=== PATIENT | male | born 1940 | race Caucasian/White ===

== ENCOUNTER 2017-02-14 16:33 | Inpatient (IN) | payer MEDICARE ==
[~2017-02-14] VITALS: Ht 170.2 cm; Wt 78.9 kg
[2017-02-14] MEDS ORDERED: PLEASE ENTER HEIGHT AND WEIGHT MC SCH (18:30)
[2017-02-14] MEDS ORDERED: VANCOMYCIN PER PHARMACY MC PRN (18:30)
[2017-02-14] MEDS ORDERED: PLEASE ENTER ALLERGIES MC SCH ×2 (18:30)
[2017-02-14] MEDS ORDERED: D5%-LACTATED RINGERS 1,000 ML IV SCH (19:30)
[2017-02-14] MEDS ORDERED: PHARMACOKINETIC CONSULTATION MC ONE (20:00)
[2017-02-14] MEDS ORDERED: PHARMACOKINETIC MONITORING MC PRN (20:00)
[2017-02-14] MEDS ORDERED: VANCOMYCIN 1,600 MG in SODIUM CHLORIDE 0.9% 250 ML IV ONE (20:00)
[2017-02-14 20:16] VITALS: BP 156/83
[2017-02-14] MEDS: AMPICILLIN/SULBACTAM 3 GM in SODIUM CHLORIDE 0.9% 100 ML IV SCH (20:46)
[2017-02-14] MEDS: VERAPAMIL 120MG TABLET HOMEMEDPO SCH (20:47)
[2017-02-14] MEDS: CARVEDILOL 6.25 MG TABLET HOMEMEDPO SCH (20:47)
[2017-02-14 20:50] LABS: HEMATOCRIT 37.7 % (39.2-51.8); HEMOGLOBIN 12.8 g/dL (13.7-18.0); WHITE BLOOD COUNT 7.3 x10^3/uL (3.4-10)
[2017-02-14] MEDS ORDERED: CARVEDILOL 6.25 MG TABLET PO SCH (21:00)
[2017-02-14] MEDS ORDERED: VERAPAMIL 120MG TABLET PO SCH (21:00)
[2017-02-14 21:03] LABS: ASPARTATE AMINO TRANSFERASE 17 U/L (15-37); BLOOD UREA NITROGEN 19 mg/dL (7-18)
[2017-02-14] MEDS ORDERED: D5%-0.9% NACL 1,000 ML IV SCH (21:30)
[2017-02-15] MEDS: AMPICILLIN/SULBACTAM 3 GM in SODIUM CHLORIDE 0.9% 100 ML IV SCH ×4 (02:11→23:48)
[2017-02-15 03:27] VITALS: BP 108/69
[2017-02-15 05:43] LABS: BLOOD UREA NITROGEN 18 mg/dL (7-18)
[2017-02-15 07:30] VITALS: BP 129/77
[2017-02-15] MEDS: CARVEDILOL 6.25 MG TABLET HOMEMEDPO SCH ×2 (08:01→18:19)
[2017-02-15] MEDS: VERAPAMIL 120MG TABLET HOMEMEDPO SCH ×2 (08:04→18:20)
[2017-02-15] MEDS ORDERED: MIDAZOLAM 1 MG/ML, 2ML ONE (13:26)
[2017-02-15] MEDS ORDERED: FENTANYL PF 100 MCG/2ML ONE (13:27)
[2017-02-15] MEDS ORDERED: PROPOFOL 10 MG/ML, 20ML ONE (13:27)
[2017-02-15] MEDS ORDERED: BACITRACIN 50,000 UNIT ONE (13:34)
[2017-02-15] MEDS ORDERED: BUPIVACAINE/PF 0.25% ONE (13:34)
[2017-02-15] MEDS ORDERED: ONDANSETRON 2MG/ML, 2ML IVPush PRN (14:00)
[2017-02-15] MEDS ORDERED: HYDROmorphone 1 MG/ML, 1ML IV PRN (14:00)
[2017-02-15] MEDS ORDERED: FENTANYL PF 100 MCG/2ML IV PRN (14:00)
[2017-02-15] MEDS ORDERED: PROMETHAZINE 25 MG/ML, 1ML IV PRN (14:00)
[2017-02-15] MEDS ORDERED: hydrALAzine 20 MG/ML, 1ML IV PRN (14:00)
[2017-02-15] MEDS ORDERED: ACETAMINOPHEN 325 MG TABLET PO PRN (14:00)
[2017-02-15] MEDS ORDERED: OXYcodone 5 MG/5 ML ORAL.SOL UDC PO PRN (14:00)
[2017-02-15] MEDS ORDERED: LABETALOL 5MG/ML, 20ML IV PRN (14:00)
[2017-02-15] MEDS ORDERED: MEPERIDINE/PF 25MG/0.5ML IVPush PRN (14:00)
[2017-02-15 15:55] VITALS: BP 154/101
[2017-02-15] MEDS ORDERED: MEPERIDINE/PF 50 MG/ML IM PRN (16:00)
[2017-02-15] MEDS ORDERED: ONDANSETRON 2MG/ML, 2ML IV PRN (16:00)
[2017-02-15 18:45] VITALS: BP 145/83
[2017-02-15] MEDS ORDERED: VANCOMYCIN 1,600 MG in SODIUM CHLORIDE 0.9% 250 ML IV SCH (21:30)
[2017-02-15 23:47] VITALS: BP 111/63
[2017-02-16 03:33] VITALS: BP 119/64
[2017-02-16] MEDS: AMPICILLIN/SULBACTAM 3 GM in SODIUM CHLORIDE 0.9% 100 ML IV SCH ×2 (05:43→12:09)
[2017-02-16] MEDS: CARVEDILOL 6.25 MG TABLET HOMEMEDPO SCH (05:43)
[2017-02-16 05:47] VITALS: BP 128/65
[2017-02-16 06:46] VITALS: BP 102/68
[2017-02-16] MEDS: VERAPAMIL 120MG TABLET HOMEMEDPO SCH (09:08)
[2017-02-16 13:05] VITALS: BP 113/68
[2017-02-16] MEDS ORDERED: CLIN300C8 PO (14:13)
[2017-02-16] MEDS ORDERED: OXYC-306 PO (14:13)
== END 2017-02-16 14:25 | disposition home or self-care (01) | DRG 982 ==
LOC: 4NOR 16:33 → DCLOUNGE 02-16 14:02
PROVIDERS: ADMIT Orthopaedic Surgery; ATTEND Orthopaedic Surgery
PROC: 0LB50ZZ Excision of Right Lower Arm and Wrist Tendon, Open Approach (ICD-10-PCS; principal; 2017-02-16)
DX: S61.511A Laceration without foreign body of right wrist, initial encounter (principal); L03.113 Cellulitis of right upper limb; L02.413 Cutaneous abscess of right upper limb; I10 Essential (primary) hypertension; W26.0XXA Contact with knife, initial encounter; Y93.89 Activity, other specified; Y92.89 Other specified places as the place of occurrence of the external cause; Y99.8 Other external cause status; I25.2 Old myocardial infarction; Z95.5 Presence of coronary angioplasty implant and graft
CPT/HCPCS: 36415; 71010; 80053; 81003; 82565; 84520; 85025; 85610; 85651; 85730; 87070; 87075; 87181; 87205; 88304; 93005; J0295; J2250; J2704; J3010; J3370; J3490; J7050; J7121

== ENCOUNTER 2020-12-18 05:52 | Day surgery (SDC) | payer MEDICARE ==
[~2020-12-18] VITALS: Ht 170.2 cm; Wt 84.1 kg
[~2020-12-18 05:52] MED LIST: ASCO500T9 PO; CEFD300C37 PO; CHOL500045 PO; CLIN300C9 PO; CLOP75TA52 PO; DOXY100T PO; IBUP-1221 PO; OXYC1TAB17 PO; THIA100T67 PO; VERA120T13 PO; ZINC220C7 PO
[2020-12-18] MEDS ORDERED: APIX5TAB PO (06:17)
[2020-12-18] MEDS ORDERED: CHOL10003 PO (06:18)
[2020-12-18] MEDS ORDERED: MOBIC PO (06:19)
[2020-12-18] MEDS ORDERED: PROP10TA16 PO (06:20)
[2020-12-18 06:26] VITALS: BP 147/106
[2020-12-18] MEDS ORDERED: DRON400T6 PO (06:33)
[2020-12-18 06:51] LABS: BASOPHILS % (AUTO) 2 % (0-1); EOSINOPHILS % (AUTO) 4 % (1-7); LYMPHOCYTES % (AUTO) 43 % (22-44); MEAN PLATELET VOLUME 10.6 fL (7.4-10.4); MONOCYTES % (AUTO) 9 % (2-9); NEUTROPHILS % (AUTO) 43 % (42-75); PLATELET COUNT 146 x10^3/uL (130-400); RED BLOOD COUNT 4.18 x10^6/uL (4.38-5.82); RED CELL DISTRIBUTION WIDTH 13.9 % (9.4-14.8)
[2020-12-18 07:02] LABS: ANION GAP 6 mmol/L (5-15); CALCIUM 8.7 mg/dL (8.5-10.1); CHLORIDE 113 mmol/L (98-107); CREATININE 1.58 mg/dL (0.7-1.3); INTERNATIONAL NORMALIZED RATIO 1.07 (0.93-1.1); PROTHROMBIN TIME 11.4 Seconds (9.6-11.5)
[2020-12-18] MEDS ORDERED: VERAPAMIL 120MG TABLET PO SCH (09:00)
[2020-12-18] MEDS ORDERED: PROPRANOLOL 10 MG TABLET PO SCH (09:00)
[2020-12-18] MEDS ORDERED: DRONEDARONE 400MG TABLET PO SCH (09:00)
[2020-12-18] MEDS ORDERED: CHOLECALCIFEROL 1,000 UNIT TABLET PO SCH (09:00)
[2020-12-18] MEDS ORDERED: APIXABAN 5 MG TABLET PO SCH (09:00)
[2020-12-18] MEDS ORDERED: PROPOFOL 10 MG/ML, 20ML ONE (09:02)
== END 2020-12-18 09:08 | disposition home or self-care (01) ==
LOC: CACL 05:52
PROVIDERS: ATTEND Internal Medicine Clinical Cardiac Electrophysiology
DX: I48.19 Other persistent atrial fibrillation (principal); I25.10 Atherosclerotic heart disease of native coronary artery without angina pectoris; I25.9 Chronic ischemic heart disease, unspecified; E78.5 Hyperlipidemia, unspecified; I10 Essential (primary) hypertension; Z20.822 Contact with and (suspected) exposure to COVID-19; Z79.01 Long term (current) use of anticoagulants; Z79.899 Other long term (current) drug therapy
CPT/HCPCS: 36415; 80048; 85025; 85610; 87635; 92960; 93005; 93312; 93321; 93325; J2704